=== PATIENT | male | born 1995 | race African-American/Black ===

== ENCOUNTER 2021-12-15 23:13 | Emergency (ER) | payer OTHER ==
[~2021-12-15] VITALS: Ht 185.4 cm; Wt 106.6 kg
[2021-12-16 02:21] LABS: BASO % 0.3 % (0.0-1.0); EOS % 0.3 % (0.0-3.0); HEMATOCRIT 39.9 % (42.0-52.0); HEMOGLOBIN 13.8 g/dl (13.5-17.5); LYMPH # 0.9 10^3/uL (1.5-5.0); LYMPH % 8.8 % (24.0-44.0); MEAN CORPUSCULAR HEMOGLOBIN 28.5 pg (27.0-33.0); MEAN CORPUSCULAR HGB CONC 34.6 g/dl (32.0-36.5); MEAN CORPUSCULAR VOLUME 82.4 fl (80.0-96.0); MONO # 0.9 10^3/uL (0.0-0.8); MONO % 8.3 % (2.0-8.0); NEUTROPHILS # 8.6 10^3/uL (1.5-8.5); NEUTROPHILS % 81.9 % (36.0-66.0); PLATELET COUNT, AUTOMATED 265 10^3/uL (150-450); RED BLOOD COUNT 4.84 10^6/uL (4.30-6.10); WHITE BLOOD COUNT 10.5 10^3/uL (4.0-10.0)
[2021-12-16 02:59] LABS: ALBUMIN 4.5 GM/DL (3.2-5.2); BILIRUBIN,TOTAL 0.7 MG/DL (0.2-1.0); CALCIUM LEVEL 9.8 MG/DL (8.5-10.1); CREATININE FOR GFR 1.6 MG/DL (0.70-1.30); GLOMERULAR FILTRATION RATE 55.9 (>60); POTASSIUM SERUM 4.7 MEQ/L (3.5-5.1); TOTAL PROTEIN 7.4 GM/DL (6.4-8.2)
[2021-12-16] MEDS ORDERED: MORPHINE 4 MG/ML 1ML VIAL/SYRINGE IV ONE ×2 (05:50→07:50)
[2021-12-16] MEDS ORDERED: NS 1,000 ML IV ONE (05:50)
[2021-12-16] MEDS ORDERED: ONDANSETRON 4MG 2ML VIAL IV ONE (05:50)
[2021-12-16] MEDS ORDERED: PERCOCET 5MG/325MG TAB PO ONE (07:50)
[2021-12-16] MEDS ORDERED: PERC5TAB12 PO (09:33)
[2021-12-16 10:29] VITALS: BP 140/85
== END 2021-12-16 10:32 | disposition home or self-care (01) ==
LOC: EDBD 23:13 → M ED 23:13
DX: R03.0 Elevated blood-pressure reading, without diagnosis of hypertension (principal); N13.2 Hydronephrosis with renal and ureteral calculous obstruction; R16.1 Splenomegaly, not elsewhere classified; M43.16 Spondylolisthesis, lumbar region
CPT/HCPCS: 74176; 80053; 83605; 83690; 85025; 96361; 96374; 96375; 96376; 99284; J2270; J2405